=== PATIENT | male | born 1970 | race Caucasian/White ===

== ENCOUNTER 2016-10-14 15:15 | Day surgery (SDC) | payer BC ==
--- NOTE | ~2016-10-14 | EGD ---
EGD REPORT [facility] [address] [address] NAME: TRACE OSULLIVAN 2ND : [birth year] STATUS : REG [facility] PAT#: [id number] AGE: 45 ADM/REG DATE : 10/14/16 MR#: [id number] REPORT SERV DATE: 10/14/16 DICTATED BY: ISAIAS ROJAS DATE: 10/14/16 REPORT STATUS : Draft TRANSCRIBED BY: [facility] DATE: 10/14/16 Endoscopy Center Patient Name: Trace Osullivan Date of : 1970 Attending MD: ISAIAS ROJAS MD Procedure Date No Time: 10/14/2016 Procedure: Upper GI endoscopy Indications: Hematochezia, Weight loss Referring MD: DIYA OLIVER MD Medicines: Monitored Anesthesia Care Complications: No immediate complications. Procedure: Pre-Anesthesia Assessment: - ASA Grade Assessment: I - A normal, healthy patient. After obtaining informed consent, the endoscope was passed under direct vision. Throughout the procedure, the patient's blood pressure, pulse, and oxygen saturations were monitored continuously. The GIF H190 [id number] was introduced through the mouth, and advanced to the second part of duodenum. The upper GI endoscopy was accomplished without difficulty. The patient tolerated the procedure well. Findings: Localized mild erythema was found at the gastroesophageal junction. Biopsies were taken with a cold forceps for histology. The Z-line was irregular and was found at the gastroesophageal junction. Biopsies were taken with a cold forceps for histology. Localized moderate inflammation characterized by congestion (edema) and erythema was found in the gastric antrum. Biopsies were taken with a cold forceps for histology. The cardia and gastric fundus were normal on retroflexion. One non-bleeding cratered duodenal ulcer with no stigmata of bleeding was found in the duodenal bulb. The lesion was 7 mm in largest dimension. Biopsies were taken with a cold forceps for histology. The 2nd part of the duodenum was normal. Biopsies were taken with a cold forceps for evaluation of celiac disease. Impression: - Erythema at the gastroesophageal junction. Biopsied. - Z-line irregular, at the gastroesophageal junction. Biopsied. - Gastritis. Biopsied. - One duodenal ulcer with clean base. Biopsied. - Normal 2nd part of the duodenum. Biopsied. Recommendation: - Patient has a contact number available for EGD REPORT [address] [address] NAME: TRACE OSULLIVAN 2ND : [birth year] STATUS : REG [facility] PAT#: [id number] AGE: 45 ADM/REG DATE : 10/14/16 MR#: [id number] REPORT SERV DATE: 10/14/16 DICTATED BY: ISAIAS ROJAS DATE: 10/14/16 REPORT STATUS : Draft TRANSCRIBED BY: [facility] DATE: 10/14/16 emergencies. The signs and symptoms of potential delayed complications were discussed with the patient. Return to normal activities tomorrow. Written discharge instructions were provided to the patient. - Use Protonix (pantoprazole) 40 mg PO daily. - Follow an antireflux regimen. - Await pathology results. Procedure Code(s): --- Professional --- 95361, Esophagogastroduodenoscopy, flexible, transoral; with biopsy, single or multiple Diagnosis Code(s): --- Professional --- K22.9, Disease of esophagus, unspecified K22.8, Other specified diseases of esophagus K29.70, Gastritis, unspecified, without bleeding K26.9, Duodenal ulcer, unspecified as acute or chronic, without hemorrhage or perforation K92.1, Melena R63.4, Abnormal weight loss CPT copyright 2013 [employer]. All rights reserved. The codes documented in this report are preliminary and upon counseling psychologist review may be revised to meet current compliance requirements. ISAIAS ROJAS MD 10/14/2016 4:52 PM This report has been signed electronically. Number of Addenda: 0 Note Initiated On: 10/14/2016 4:36 PM Scope Withdrawal Time 0 hours 0 minutes 0 seconds [id number] [place] [address]
--- NOTE | ~2016-10-14 | EGD ---
EGD REPORT [facility] [address] [address] NAME: TRACE OSULLIVAN 2ND : [birth year] [place] [facility] [place]#: [id number] AGE: 45 ADM/REG DATE : 10/14/16 MR#: [id number] REPORT SERV DATE: 10/14/16 DICTATED BY: ISAIAS ROJAS DATE: 10/14/16 REPORT STATUS : Draft TRANSCRIBED BY: [facility] DATE: 10/14/16 Endoscopy Center Patient Name: Trace Osullivan Date of : 1970 Attending MD: ISAIAS ROJAS MD Procedure Date No Time: 10/14/2016 Procedure: Colonoscopy Indications: Clinically significant diarrhea of unexplained origin, Hematochezia Referring MD: DIYA OLIVER MD Medicines: Monitored Anesthesia Care Complications: No immediate complications. Procedure: Pre-Anesthesia Assessment: - ASA Grade Assessment: I - A normal, healthy patient. After I obtained informed consent, the scope was passed under direct vision. Throughout the procedure, the patient's blood pressure, pulse, and oxygen saturations were monitored continuously. The PCF [id number] was introduced through the anus and advanced to the terminal ileum, with identification of the appendiceal orifice and IC valve. The colonoscopy was performed without difficulty. The patient tolerated the procedure well. The quality of the bowel preparation was adequate. Findings: The digital rectal exam was normal. Pertinent negatives include no palpable rectal lesions. The terminal ileum appeared normal. Biopsies were taken with a cold forceps for histology. The cecum appeared normal. Biopsies were taken with a cold forceps for histology. The ascending colon appeared normal. Biopsies were taken with a cold forceps for histology. The transverse colon appeared normal. Biopsies were taken with a cold forceps for histology. Diffuse moderate inflammation characterized by congestion (edema), erythema, granularity, loss of vascularity and mucus was found in the distal descending colon. Biopsies were taken with a cold forceps for histology. Diffuse severe inflammation characterized by altered vascularity, congestion (edema), erosions, erythema, friability, loss of vascularity, mucus and shallow ulcerations was found in the sigmoid colon. Biopsies were taken with a cold forceps for histology. Diffuse moderate inflammation characterized by erythema, granularity, loss of vascularity, mucus and shallow ulcerations was found in the EGD REPORT [address] [place]. [address] NAME: TRACE OSULLIVAN 2ND : [birth year] STATUS : [place] [facility] PAT#: [id number] AGE: 45 ADM/REG DATE : 10/14/16 MR#: [id number] REPORT SERV DATE: 10/14/16 DICTATED BY: ISAIAS ROJAS DATE: 10/14/16 REPORT STATUS : Draft TRANSCRIBED BY: [employer] DATE: 10/14/16 rectum. Biopsies were taken with a cold forceps for histology. Impression: - The examined portion of the ileum was normal. Biopsied. - The cecum is normal. Biopsied. - The ascending colon is normal. Biopsied. - The transverse colon is normal. Biopsied. - Diffuse moderate inflammation was found in the distal descending colon secondary to colitis. Biopsied. - Diffuse severe inflammation was found in the sigmoid colon secondary to colitis. Biopsied. - Diffuse moderate inflammation was found in the rectum secondary to colitis. Biopsied. Recommendation: - Patient has a contact number available for emergencies. The signs and symptoms of potential delayed complications were discussed with the patient. Return to normal activities tomorrow. Written discharge instructions were provided to the patient. - Regular diet. - Continue present medications. - Check stool for Clostridium difficile toxin. - Check routine bacterial stool cultures. - Use Canasa 1000 mg suppository 1 per rectum QHS. - Use prednisone 40 mg PO once a day for 1 week then 30mg per day for 1 week then 20mg daily for 1 week and then 10 mg daily for 1 week. - Use Lialda 1.2 gm at 4 tabs PO daily. - Await pathology results. Procedure Code(s): --- Professional --- 16891, Colonoscopy, flexible, proximal to splenic flexure; with biopsy, single or multiple Diagnosis Code(s): --- Professional --- K52.9, Noninfective gastroenteritis and colitis, unspecified R19.7, Diarrhea, unspecified K92.1, Melena CPT copyright 2013 [employer]. All rights reserved. The codes documented in this report are preliminary and upon medical records coder review may be revised to meet current compliance requirements. ISAIAS ROJAS MD EGD REPORT [facility] [address] [address] NAME: TRACE OSULLIVAN 2ND : [birth year] [place]US : [place] [facility] [place]#: [id number] AGE: 45 ADM/REG DATE : 10/14/16 MR#: [id number] REPORT SERV DATE: 10/14/16 DICTATED BY: ISAIAS ROJAS DATE: 10/14/16 REPORT STATUS : Draft TRANSCRIBED BY: [employer] DATE: 10/14/16 10/14/2016 5:28 PM This report has been signed electronically. Number of Addenda: 0 Note Initiated On: 10/14/2016 4:35 PM Scope Withdrawal Time 0 hours 16 minutes 44 seconds [id number] [address]
[~2016-10-14 15:15] MED LIST: ADVIL PO
== END 2016-10-14 23:59 | disposition home or self-care (01) ==
LOC: DMU 15:15
PROVIDERS: Internal Medicine Gastroenterology
PROC: 0DB68ZX Excision of Stomach, Via Natural or Artificial Opening Endoscopic, Diagnostic (ICD-10-PCS; 2016-10-14)
PROC: 0DBB8ZX Excision of Ileum, Via Natural or Artificial Opening Endoscopic, Diagnostic (ICD-10-PCS; 2016-10-14)
PROC: 0DBP8ZX Excision of Rectum, Via Natural or Artificial Opening Endoscopic, Diagnostic (ICD-10-PCS; 2016-10-14)
PROC: 0DBN8ZX Excision of Sigmoid Colon, Via Natural or Artificial Opening Endoscopic, Diagnostic (ICD-10-PCS; 2016-10-14)
PROC: 0DBM8ZX Excision of Descending Colon, Via Natural or Artificial Opening Endoscopic, Diagnostic (ICD-10-PCS; 2016-10-14)
PROC: 0DBL8ZX Excision of Transverse Colon, Via Natural or Artificial Opening Endoscopic, Diagnostic (ICD-10-PCS; 2016-10-14)
PROC: 0DBK8ZX Excision of Ascending Colon, Via Natural or Artificial Opening Endoscopic, Diagnostic (ICD-10-PCS; 2016-10-14)
PROC: 0DBH8ZX Excision of Cecum, Via Natural or Artificial Opening Endoscopic, Diagnostic (ICD-10-PCS; 2016-10-14)
PROC: 0DB98ZX Excision of Duodenum, Via Natural or Artificial Opening Endoscopic, Diagnostic (ICD-10-PCS; principal; 2016-10-14 16:30)
PROC: 0DB48ZX Excision of Esophagogastric Junction, Via Natural or Artificial Opening Endoscopic, Diagnostic (ICD-10-PCS; 2016-10-14 16:30)
DX: K29.50 Unspecified chronic gastritis without bleeding (principal); K29.80 Duodenitis without bleeding; K52.9 Noninfective gastroenteritis and colitis, unspecified; Z79.899 Other long term (current) drug therapy
CPT/HCPCS: 87045; 87046; 87046-59; 87493; 87493-59; 87899; 87899-59; 88305; 89055; J3010